=== PATIENT | female | born 1995 ===

== ENCOUNTER → 2017-03-23 | Outpatient (REF) | LOC: WSOH 13:55 | DX: Z02.89 Encounter for other administrative examinations (principal) ==

== ENCOUNTER → 2017-03-25 | Outpatient (REF) | LOC: WSOH 11:41 | DX: Z02.89 Encounter for other administrative examinations (principal) ==

== ENCOUNTER → 2017-03-25 | Outpatient (REF) | LOC: WSOH 09:21 → WSPT 10:45 | DX: Z02.1 Encounter for pre-employment examination (principal) ==